=== PATIENT | male | born 1975 ===

== ENCOUNTER 2020-04-23 13:41 | Emergency (ER) | payer SELFPAY ==
[2020-04-23] MEDS ORDERED: Adacel (T-DAP) 0.5 ML SYRINGE ONE (14:05)
--- NOTE | 2020-04-23 14:15 | RAD ---
Exam:3 views left hand HISTORY: Laceration. COMPARISON: None FINDINGS: Limited evaluation of the third digit of the left hand due to overlying bandage material. T here is a displaced fracture involving the distal phalanx of the left third digit. No obvious radiopaque foreign body. There does appear to be associated soft tissue injury. Additional fractures and/or injuries of the left hand are not appreciated. IMPRESSION: 1. Soft tissue injury and fracture involving the distal phalanx of the left hand third digit.
[2020-04-23] MEDS ORDERED: Morphine 4 MG/ML VIAL ONE ×2 (14:20→15:18)
[2020-04-23] MEDS ORDERED: Lidocaine 4% Topical Sol 50 ML BOT ONE (14:32)
[2020-04-23] MEDS ORDERED: Bupivacaine 0.5% 10 ML VIAL ONE (14:32)
[2020-04-23] MEDS ORDERED: Lidocaine 1% (PF) 30 ML VIAL ONE (14:33)
[2020-04-23] MEDS ORDERED: Silver Nitrate Application 1 EACH ONE (14:54)
--- NOTE | 2020-04-23 19:36 | OP ---
DATE OF PROCEDURE: 04/23/2020 ANESTHESIA: Digital block with Xylocaine and then reinforced with bupivacaine at the time of termination of procedure, as well as IV morphine 4 mg. INDICATION: The patient is a 44-year-old male, who presented to [facility] Room, where plain radiographs demonstrated distal third long finger distal phalanx traumatic amputation. Clinically, he had very little skin attaching it on the radial aspect, and the tip and tuft were essentially dysvascular. FINDINGS: Near transverse amputation of the long finger distal phalanx. DRAINS: None. SPECIMENS: None. COMPLICATION: None. COUNTS: Correct. DESCRIPTION OF PROCEDURE: The patient was placed in a supine position. Informed consent was obtained through housekeeper supervisor. He then received some morphine 4 mg for comfort and relaxation. I then placed a digital block of the long finger of left hand using Xylocaine 1% without epinephrine. The block was allowed to cure and the patient had excellent anesthesia. The left finger was then prepped and draped in usual sterile fashion. 1 L of normal saline was irrigated throughout the tissues, which was near transverse in nature and quite clean considering the nature of the injury. It was debrided locally and then re-prepped and draped in sterile fashion. I placed a temporary tourniquet over the finger and used the Bovie electrocautery to cauterize the vessels, which were identified. Once bleeding was controlled, I then used a Leksell rongeur to undermine the nail germinal matrix. This was also removed with sharp debridement of a #15 blade. The rongeur Leksell was then used to recess the bone down to the proximal 1/3 of the phalanx. It was skeletonized sharply and debrided and local pressure was used to control bleeding as well as temporizing tourniquet. Happy with my volar flap, I then used sharp debridement to decompress and debulk the lateral and radial and ulnar margins of the tuft. I used three 2-0 trauma stitches to reapproximate the volar tuft dorsally and then I placed four 3-0 nylon stitches for skin reapproximation. The finger was then cleaned. The procedure was terminated without any complications. Sterile dressing was applied and then I placed a reinforcing bupivacaine volar digital block prior to termination of the procedure. The patient tolerated well before, during, and after. He also received 2 g of Ancef preoperatively and he will receive Keflex 500 p.o. q.8 hours upon discharge. We will see him back in our clinic in approximately a week for a dressing change. The patient will be discharged to home with Tylenol No. 4 for pain and Keflex oral for antibiotics coverage. Job ID: [id number]
--- NOTE | 2020-04-23 19:45 | CON ---
DATE OF CONSULTATION: 04/23/2020 REQUESTING PHYSICIAN: Dr. Jacinto Gardner. CONSULTING PHYSICIAN: Dr. Nawaf Cordon. REASON FOR CONSULTATION: Left long finger traumatic fingertip amputation. 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 It amputated approximately 2/3 of the finger from ulnar to radial. He presented to [facility], where plain radiographs demonstrated a distal tip amputation involving about 1/3 of the distal phalanx of the left long finger. Our service was consulted for evaluation and possible bedside amputation in the emergency room. PAST MEDICAL HISTORY: Negative. PAST SURGICAL HISTORY: Negative. MEDICATIONS: None. ALLERGIES: NO KNOWN DRUG ALLERGIES. HE DENIES ANY CONTACT ALLERGIES. SOCIAL HISTORY: He smokes occasionally. Occasional ethanol. He is . He lives in [place]. He works here locally. PHYSICAL EXAMINATION: Visual inspection of left hand demonstrates him to have active bleeding at the amputation site. He still has the DIP joint intact and this is near transverse involvement of the fingertip itself. The bone is exposed. The fingertip is held on essentially by and skin on the radial side. There were some vessels noted, which were actively bleeding and were cauterized during the examination. IMAGING STUDIES: Three views left hand demonstrates a distal third phalanx traumatic amputation. IMPRESSION: Left long finger distal fingertip traumatic amputation with dysvascular tuft. PLAN: 1. The risks, benefits, options, alternatives, and rationale for proceeding with the bedside revision amputations have been explained in great detail to the patient through a steelworker and he is ready to proceed. All questions were answered. No guarantee of outcome stated or implied. 2. Please see procedure note. Job ID: [id number]
== END 2020-04-23 18:11 | disposition home or self-care (01) ==
LOC: ERS 13:41
DX: S68.123A Partial traumatic metacarpophalangeal amputation of left middle finger, initial encounter (principal); F17.210 Nicotine dependence, cigarettes, uncomplicated; W26.8XXA Contact with other sharp object(s), not elsewhere classified, initial encounter
CPT/HCPCS: 26236; 90471; 90715; 96365; 96366; 96375; J0690; J2001; J2270; J3490

== ENCOUNTER 2024-04-22 16:38 | Emergency (ER) | payer OTHER ==
[2024-04-22] MEDS ORDERED: Ketorolac Tromethamine 30 MG (1 mL) VIAL ONE (18:10)
== END 2024-04-22 20:04 | disposition home or self-care (01) ==
LOC: ERS 16:38
DX: M54.50 Low back pain, unspecified (principal); F17.210 Nicotine dependence, cigarettes, uncomplicated; V49.40XA Driver injured in collision with unspecified motor vehicles in traffic accident, initial encounter
CPT/HCPCS: 72100; 96372; J1885